=== PATIENT | male | born 1965 | race Hispanic/Latino ===

== ENCOUNTER 2024-06-29 22:05 | Emergency (ER) | payer OTHER, SELFPAY ==
[2024-06-29 22:07] VITALS: BP 146/94
[2024-06-29 22:56] VITALS: BMI 26.9
[2024-06-29 23:11] LABS: % Basophils 0.8 % (0-2); % Eosinophils 2.9 % (0-6); % Immature Granulocytes 0.6 % (0-0.5); % Lymphocytes 27.3 % (20.5-51.1); % Monocytes 9.3 % (1.7-9.3); % Neutrophils 59.1 % (42.2-75.2); Absolute Basophils 0.1 10^3/uL (0-0.2); Absolute Eosinophils 0.2 10^3/uL (0-0.7); Absolute Lymphocytes 1.8 10^3/uL (1.2-3.4); Absolute Monocytes 0.6 10^3/uL (0.1-0.6); Absolute Neutrophils 3.9 10^3/uL (1.4-6.5); Hematocrit 39.9 % (39.0-52.0); Hemoglobin 14.6 g/dL (13.0-18.0); Mean Corp Hgb Conc. 36.6 g/dL (33.0-37.0); Mean Corpuscular Hgb 30.9 pg (27.0-31.0); Mean Corpuscular Volume 84.5 fL (80.0-94.0); Mean Platelet Volume 9.1 fL (7.4-10.4); Nucleated Red Blood Cells % 0 % (-); Platelet Count 207 10^3/uL (130-400); Red Blood Cell Count 4.72 10^6/uL (4.70-6.10); Red Cell Dist. Width 12.2 % (11.5-14.5); White Blood Cell Count 6.6 10^3/uL (4.8-10.8)
--- NOTE | 2024-06-29 23:17 | ED.GENMED ---
History of Present Illness
General
Chief Complaint: Abdominal Pain
Source: patient
Exam Limitations: none
Time Seen by Provider: 06/29/24 22:41
History of Present Illness
History of Present Illness:
58-year-old male with history of ias-cpsnbzw-xbagyfmel diabetes, IBS presents with sudden onset right mid abdominal pain with associated nausea and vomiting. The pain was sharp at onset very severe at onset. He now notes a bloating sensation in
the abdomen. No urinary symptoms. No hematuria. No flank pain. No chest pain or fever. No prior abdominal surgical history. No other complaints at this time
Past History
Past History
ED Past Medical History: Hypercholesterolemia (, and depression ), NIDDM and Other (Patient has a history of ulcerative colitis and bowel obstruction . History of nonalcoholic liver disease)
Social History
Tobacco: Non-smoker
Personal:
Living: with family
Employment: Employed
Phy Exam
Physical Exam
Physical Exam:
General: Well-appearing male no acute respiratory distress
HEENT: Normocephalic atraumatic
Heart: Regular rate and rhythm no murmurs
Lungs: Clear no wheeze
Abdomen is soft tender to the right mid abdomen no guarding or rebound negative Hernandez sign mild right lower quadrant tenderness. Nondistended normal bowel sounds no CVA tenderness
Extremities: No cyanosis or edema
Skin: Warm no rash
Course
Orders/Labs/Results
Orders:
Orders
06/29/24 22:53
CT Abd/pelvis W Iv Cont Urgent
Comment:
Reason For Exam: right mid abdominal pain
Urinalysis Reflex To Culture Urgent
Date Specimen was Collected: 06/30/24
Time Specimen was Collected: 00:13
06/29/24 23:04
Complete Blood Count/With Diff Urgent
Comprehensive Metabolic Panel Urgent
06/30/24 00:14
Urine Microscopic Reflex Cult Urgent
Abnormal Lab Results
06/29/24 06/30/24
23:04 00:14
Immature Gran % 0.6 H %
(0-0.5)
Sodium 133 L mmol/L
(135-145)
Glucose 261 H mg/dl
(70-99)
Ur Occult Blood Reflex 4+ A
(Negative)
Leukocyte Esterase Rfl Trace A
(Negative)
Urine RBC >100 A /HPF
(0-2)
Urine Glucose 3+ A
(Negative)
06/29/24 23:04
06/29/24 23:04
Vital Signs
Initial and Last Documented VS:
Initial Vital Signs
Temp Pulse Resp BP Pulse Ox
98.7 F 94 20 146/94 99
06/29/24 22:07 06/29/24 22:07 06/29/24 22:07 06/29/24 22:07 06/29/24 22:07
Last Documented Vital Signs
Temp Pulse Resp BP Pulse Ox
98.7 F 74 16 147/85 100
06/29/24 22:07 06/30/24 00:17 06/30/24 00:17 06/30/24 00:17 06/30/24 00:17
MDM/Problems Addressed
Differential Diagnosis Includes:
Right mid abdominal pain. Consider renal colic versus biliary colic versus appendicitis with constipation versus viral illness
Will check labs. Urinalysis pending. CT with IV contrast pending
*Critical Care Note
Total Time (30-74mins, 75-104mins- exclusive of procedures): Not Applicable
Update Note
Update Note:
Patient has 4 mm stone in the right mid ureter with mild hydronephrosis. Urinalysis negative for infection. Reassessed patient. Still declining any pain medication. No infection in the urine vital signs are stable no indication for admission.
Will recommend hydration at home Flomax Motrin and Zofran. Urology referral was made return precautions were given
ED Attending Note
-
Portions of this chart may have been created with voice recognition software.� Occasional wrong word or��sound alike� substitutions may have occurred due to the inherent limitations of voice recognition software.
Discharge Plan
Departure
Patient Disposition: Home (Routine Discharge)
Date of Disposition: 06/30/24
Time of Disposition: 01:03
Patient with high blood pressure during this ER visit?: No
Discharge Problem:
Kidney stone
Instructions: Kidney Stones (DC)
Prescriptions:
New
tamsulosin [Flomax] 0.4 mg capsule
0.4 mg PO DAILY Qty: 14 0RF
ondansetron 4 mg tablet,disintegrating
4 mg PO Q8H PRN (Reason: nausea and vomiting) Qty: 10 0RF
ibuprofen 600 mg tablet
600 mg PO TID PRN (Reason: Pain) Qty: 10 0RF
No Action
paroxetine HCl 10 MG tablet
10 mg PO DAILY
fenofibrate nanocrystallized 145 MG tablet
145 mg PO DAILY
rosuvastatin 5 mg Tablet
5 mg PO DAILY
Janumet 50-1,000 mg Tablet
2 tab PO DAILY
Trulicity 3 mg/0.5 mL Pen Injector
3 mg SC QWEEK
Referrals:
Chuck West MD [Family Provider] -
Interventions
Interventions:
*Risk Screen - Suicide Last Done: 06/29/24 22:07
*General Assessment Last Done: 06/29/24 22:56
*Neglect/Abuse Screening Last Done: 06/29/24 22:07
ED- Fall Risk Assessment Last Done: 06/29/24 23:09
*ED COVID-19 Vaccine History Last Done: 06/29/24 22:56
DG-Johtyo-Bwciuscnwz Assessment Last Done: 06/29/24 23:09
Discharge Date and Time
Print Language: CHINESE
[2024-06-29 23:27] LABS: ALT (SGPT) 38 U/L (0-50); AST (SGOT) 38 U/L (17-59); Albumin 4.5 g/dl (3.5-5.0); Alkaline Phosphatase 61 U/L (38-126); Blood Urea Nitrogen 17 mg/dl (9-20); Calcium 9.8 mg/dl (8.4-10.2); Carbon Dioxide 22 mmol/L (22-30); Chloride 99 mmol/L (98-107); Estimated Creatinine Clearance 82 ml/min; Glucose 261 mg/dl (70-99); Potassium 4.1 mmol/L (3.5-5.1); Sodium 133 mmol/L (135-145); Total Bilirubin 1.2 mg/dl (0.2-1.3); eGFR > 60.00
[2024-06-30 00:17] VITALS: BP 147/85
[2024-06-30 00:35] LABS: Urine Albumin Trace (Neg - Trace); Urine Bilirubin Negative (Negative); Urine Character Slightly Cloudy (Clear); Urine Color Amber; Urine Glucose 3+ (Negative); Urine Ketone Negative (Negative); Urine Leukocyte Trace (Negative); Urine Nitrite Negative (Negative); Urine Occult Blood 4+ (Negative); Urine Specific Gravity 1.015 (<1.030); Urine Urobilinogen Negative (Neg - 1+)
[2024-06-30 00:51] LABS: Urine Red Blood Cell >100 /HPF (0-2)
[2024-06-30 00:58] LABS: Urine Squamous Cell SEEN /LPF (Few)
[2024-06-30] MEDS: TORADOL 15 MG IV (01:12)
== END 2024-06-30 01:20 | disposition home or self-care (01) ==
LOC: EMR 22:05
PROVIDERS: Physician Assistant; EMERGENCY PHYSICIAN Emergency Medicine; FAMILY PHYSICIAN Family Medicine
DX: N20.0 Calculus of kidney (principal); E78.00 Pure hypercholesterolemia, unspecified; F32.A Depression, unspecified; E11.9 Type 2 diabetes mellitus without complications; K58.9 Irritable bowel syndrome, unspecified
CPT/HCPCS: 99284; 96374; 74177; 80053; 81003; 81015; 85025; Q9967

== ENCOUNTER → 2024-10-04 07:07 | Outpatient (REF) | payer OTHER, SELFPAY | LOC: HWRAD 07:07 | PROVIDERS: ATTENDING PHYSICIAN Internal Medicine Gastroenterology; FAMILY PHYSICIAN Family Medicine | DX: R74.8 Abnormal levels of other serum enzymes (principal) | CPT/HCPCS: 76700; 93975 ==